=== PATIENT | female | born 1980 | race Caucasian/White ===

== ENCOUNTER 2022-08-30 15:15 | Inpatient (IN) | payer MEDICAID, SELFPAY ==
[~2022-08-30 15:15] MED LIST: Iopamidol-370 76% 500 ML 1 ML ONE
[2022-08-30 15:46] LABS: #Eosinphils 0.2 thou/uL (0.0-0.7); #Lymphocytes 1.8 thou/uL (1.20-3.40); %Basophils 0.5 % (0.0-1.0); %Eosinophils 2.7 % (0.0-10.0); %Lymphocytes 25.9 % (21.0-51.0); %Monocytes 14.1 % (0.0-10.0); %Neutrophils 56.8 % (42.0-75.0); Mean Corpuscular HGB CONC 32.3 g/dL (32.0-36.0); Mean Corpuscular Hemoglobin 33.5 pg (27.0-31.0); Mean Platelet Volume 8.6 fL (7.4-10.4); Platelet Count 114 10x3/uL (130-400); RBC Distribution Width 15.9 % (11.5-14.5); Red Blood Cell (RBC) Count 3.57 mill/uL (4.20-5.40)
[2022-08-30 15:57] LABS: INR-International Normal Ratio 1.6; Prothrombin Time 19.6 sec (12.0-14.7)
[2022-08-30 15:58] LABS: PTT 37.9 sec (22.9-36.1)
[2022-08-30 16:11] LABS: ALT (SGPT) 25 U/L (8-55); AST (SGOT) 55 U/L (5-34); Albumin 2.1 g/dL (3.5-5.0); Alkaline Phosphatase 142 U/L (40-110); Anion Gap 12 mmol/L (10-20); BUN (Urea Nitrogen) 24 mg/dL (7.0-18.7); Bilirubin, Total 4.8 mg/dL (0.2-1.2); Calc. Creatinine Clearance 0 mL/min (70-130); Calcium 7.5 mg/dL (7.8-10.44); Carbon Dioxide 25 mmol/L (22-29); Chloride 97 mmol/L (98-107); Estimated GFR 54; Globulin 4.3 g/dL (2.4-3.5); Glucose 107 mg/dL (70-105); Lipase 58 U/L (8-78); Potassium 3.1 mmol/L (3.5-5.1); Protein, Total 6.4 g/dL (6.0-8.3); Sodium 131 mmol/L (136-145)
[2022-08-30 16:17] LABS: Anisocytosis SLIGHT = 6-15 cells (100X) (0-5/hpf); MDiff Complete? YES; Macrocytosis SLIGHT = 6-15 cells (100X) (0-5/hpf); Platelet Morphology Comment Appears Decreased
[2022-08-30] MEDS ORDERED: Ondansetron PF 4 MG/2 ML Vial ONE ×2 (16:56→19:45)
[2022-08-30] MEDS ORDERED: Fentanyl 100 MCG/2 ML VIAL ONE ×2 (16:56→18:51)
[2022-08-30 18:42] LABS: RBC Count-Automated (BF) 1002 /cu.mm; WBC/Nucleated-Auto (BF) 259 /cu.mm
[2022-08-30 18:54] LABS: Body Fluid Source Ascites Body Fluid; Tube # 3
[2022-08-30 18:55] LABS: BF Color Yellow; Clarity Hazy (Clear)
[2022-08-30 19:04] LABS: BF Segmented Neutrophils 17 %; Cell Count Non Hematic 54 %; Lymphocytes 29 %
[2022-08-30] MEDS ORDERED: cefTRIAXone\\ROCEPHIN 1 GM VIAL ONE (19:45)
[2022-08-30] MEDS ORDERED: Senokot S 8.6-50 MG TAB PO PRN (20:42)
[2022-08-30] MEDS ORDERED: Ondansetron PF 4 MG/2 ML Vial IVP PRN (20:42)
[2022-08-30] MEDS ORDERED: Calcium Carbonate 500 MG ChewTAB PO PRN (20:42)
[2022-08-30] MEDS ORDERED: Ipratropium/Albuterol 3 ML NEB NEB PRN (20:44)
[2022-08-30] MEDS ORDERED: Potassium Chloride 20 MEQ TAB PO SCH (20:45)
[2022-08-30] MEDS ORDERED: Famotidine/PF 20 mg/2ml Vial SLOW IVP SCH (21:00)
[2022-08-30] MEDS ORDERED: Meperidine HCl/PF 25 MG/ML VIAL SLOW IVP SCH (21:45)
[2022-08-30] MEDS: Famotidine 20 MG TAB PO SCH (22:03)
[2022-08-31] MEDS ORDERED: Fentanyl 100 MCG/2 ML VIAL SLOW IVP SCH (03:46)
[2022-08-31] MEDS: Ondansetron ODT 4 MG TAB PO PRN ×2 (04:42→19:55)
[2022-08-31 07:22] LABS: SARS-CoV-2 NAA Rapid Test Not Detected (NotDetected)
[2022-08-31 07:22] LABS: Hemoglobin 11.1 g/dL (12.0-16.0); Mean Corpuscular Hemoglobin 33.4 pg (27.0-31.0); Mean Platelet Volume 8.3 fL (7.4-10.4); Platelet Count 97 10x3/uL (130-400); RBC Distribution Width 15.8 % (11.5-14.5); Red Blood Cell (RBC) Count 3.31 mill/uL (4.20-5.40); White Blood Cell (WBC) Count 7.9 10x3/uL (4.8-10.8)
[2022-08-31 07:38] LABS: ALT (SGPT) 22 U/L (8-55); AST (SGOT) 47 U/L (5-34); Albumin 1.8 g/dL (3.5-5.0); Alkaline Phosphatase 129 U/L (40-110); Anion Gap 8 mmol/L (10-20); BUN (Urea Nitrogen) 21 mg/dL (7.0-18.7); Bilirubin, Total 3.4 mg/dL (0.2-1.2); Calc. Creatinine Clearance 116 mL/min (70-130); Calcium 7.1 mg/dL (7.8-10.44); Carbon Dioxide 25 mmol/L (22-29); Chloride 100 mmol/L (98-107); Estimated GFR 69; Globulin 3.9 g/dL (2.4-3.5); Glucose 95 mg/dL (70-105); Potassium 3.3 mmol/L (3.5-5.1); Protein, Total 5.7 g/dL (6.0-8.3); Sodium 130 mmol/L (136-145)
[2022-08-31] MEDS ORDERED: Spironolactone 100 MG TAB PO SCH (08:00)
[2022-08-31] MEDS: Furosemide 40 MG/4 ML VIAL SLOW IVP SCH (09:00)
[2022-08-31] MEDS: Famotidine 20 MG TAB PO SCH (09:00)
[2022-08-31 09:10] LABS: Band 4 % (5-11); Eosinophils 5 % (0-10); Lymphocytes 20 % (21-51); MDiff Complete? YES; Monocytes 14 % (0-10); Neutrophil 57 % (42-75); Platelet Morphology Comment Appears Decreased; RBC Morphology Normal
[2022-08-31] MEDS: HYDROcodone/Acetaminophen 10/325 mg Tablet PO PRN ×3 (13:44→23:21)
[2022-08-31] MEDS ORDERED: Simethicone Chewable 80 MG TAB PO PRN (15:52)
[2022-08-31] MEDS: Ipratropium/Albuterol 3 ML NEB NEB SCH (18:38)
[2022-08-31] MEDS: Mometasone 100 MCG/Formoterol 5 MCG 120 PUFF INHALER INH SCH (18:42)
[2022-08-31] MEDS ORDERED: Fentanyl 100 MCG/2 ML VIAL SLOW IVP PRN (18:47)
[2022-08-31] MEDS ORDERED: cefTRIAXone\\ROCEPHIN 2 GM in Sodium Chloride 0.9% 100 ML IVPB SCH ×2 (20:00)
[2022-09-01] MEDS: HYDROcodone/Acetaminophen 10/325 mg Tablet PO PRN ×4 (04:19→20:05)
[2022-09-01] MEDS: Ondansetron ODT 4 MG TAB PO PRN (05:55)
[2022-09-01 06:49] LABS: ALT (SGPT) 22 U/L (8-55); AST (SGOT) 44 U/L (5-34); Albumin 1.9 g/dL (3.5-5.0); Alkaline Phosphatase 129 U/L (40-110); Anion Gap 6 mmol/L (10-20); BUN (Urea Nitrogen) 20 mg/dL (7.0-18.7); Bilirubin, Total 3.2 mg/dL (0.2-1.2); Calc. Creatinine Clearance 112 mL/min (70-130); Calcium 7.5 mg/dL (7.8-10.44); Carbon Dioxide 28 mmol/L (22-29); Chloride 96 mmol/L (98-107); Estimated GFR 66; Glucose 96 mg/dL (70-105); Potassium 3.4 mmol/L (3.5-5.1); Protein, Total 5.9 g/dL (6.0-8.3); Sodium 127 mmol/L (136-145)
[2022-09-01] MEDS: Mometasone 100 MCG/Formoterol 5 MCG 120 PUFF INHALER INH SCH ×2 (07:26→18:46)
[2022-09-01] MEDS: Ipratropium/Albuterol 3 ML NEB NEB SCH ×3 (07:27→18:46)
[2022-09-01] MEDS ORDERED: PROPOFOL 200 MG/20 ML VIAL ONE (07:29)
[2022-09-01] MEDS ORDERED: Lidocaine 1% PF 5 ML VIAL ONE (07:29)
[2022-09-01] MEDS ORDERED: Promethazine HCl 25 MG/ML VIAL IM PRN (07:49)
[2022-09-01] MEDS ORDERED: Ondansetron HCl/PF 4 MG/2 ML Vial IVP PRN (07:49)
[2022-09-01] MEDS ORDERED: Potassium Chloride 20 MEQ TAB PO SCH (08:00)
[2022-09-01] MEDS ORDERED: Pantoprazole 40 MG VIAL IVP SCH (09:00)
[2022-09-01] MEDS: Spironolactone 100 MG TAB PO SCH (09:38)
[2022-09-01] MEDS: Pantoprazole 40 MG VIAL IVP SCH ×2 (09:39→20:05)
[2022-09-01] MEDS: Furosemide 40 MG/4 ML VIAL SLOW IVP SCH (09:39)
[2022-09-02] MEDS: HYDROcodone/Acetaminophen 10/325 mg Tablet PO PRN ×6 (00:26→20:13)
[2022-09-02] MEDS ORDERED: diphenhydrAMINE 25 MG CAP PO SCH (02:00)
[2022-09-02 06:32] LABS: Anion Gap 10 mmol/L (10-20); BUN (Urea Nitrogen) 20 mg/dL (7.0-18.7); Calc. Creatinine Clearance 109 mL/min (70-130); Calcium 7.9 mg/dL (7.8-10.44); Carbon Dioxide 23 mmol/L (22-29); Chloride 98 mmol/L (98-107); Estimated GFR 64; Glucose 102 mg/dL (70-105); Potassium 4.1 mmol/L (3.5-5.1); Sodium 127 mmol/L (136-145)
[2022-09-02] MEDS: Mometasone 100 MCG/Formoterol 5 MCG 120 PUFF INHALER INH SCH ×2 (06:52→19:16)
[2022-09-02] MEDS: Ipratropium/Albuterol 3 ML NEB NEB SCH ×3 (06:55→19:15)
[2022-09-02] MEDS: Pantoprazole 40 MG VIAL IVP SCH ×2 (08:39→20:14)
[2022-09-02] MEDS: Furosemide 40 MG/4 ML VIAL SLOW IVP SCH (08:39)
[2022-09-02] MEDS: Spironolactone 100 MG TAB PO SCH (08:39)
[2022-09-02] MEDS: Acetaminophen 325 MG TAB PO PRN ×2 (12:04→17:45)
[2022-09-02] MEDS ORDERED: Potassium Chloride 20 MEQ TAB PO SCH (18:15)
[2022-09-02] MEDS ORDERED: Fentanyl 100 MCG/2 ML VIAL SLOW IVP SCH (22:15)
[2022-09-03] MEDS: HYDROcodone/Acetaminophen 10/325 mg Tablet PO PRN ×5 (00:51→20:01)
[2022-09-03 07:36] LABS: Hemoglobin 10.2 g/dL (12.0-16.0); Mean Corpuscular HGB CONC 32.2 g/dL (32.0-36.0); Mean Corpuscular Hemoglobin 34.1 pg (27.0-31.0); Mean Platelet Volume 8.5 fL (7.4-10.4); Platelet Count 90 10x3/uL (130-400); RBC Distribution Width 15.7 % (11.5-14.5); Red Blood Cell (RBC) Count 2.99 mill/uL (4.20-5.40); White Blood Cell (WBC) Count 7.4 10x3/uL (4.8-10.8)
[2022-09-03 07:53] LABS: ALT (SGPT) 21 U/L (8-55); AST (SGOT) 46 U/L (5-34); Albumin 1.9 g/dL (3.5-5.0); Alkaline Phosphatase 136 U/L (40-110); Anion Gap 10 mmol/L (10-20); BUN (Urea Nitrogen) 20 mg/dL (7.0-18.7); Bilirubin, Total 3.1 mg/dL (0.2-1.2); Calc. Creatinine Clearance 104 mL/min (70-130); Calcium 7.6 mg/dL (7.8-10.44); Carbon Dioxide 21 mmol/L (22-29); Chloride 97 mmol/L (98-107); Estimated GFR 60; Globulin 3.9 g/dL (2.4-3.5); Glucose 96 mg/dL (70-105); Potassium 4.4 mmol/L (3.5-5.1); Protein, Total 5.8 g/dL (6.0-8.3); Sodium 124 mmol/L (136-145)
[2022-09-03] MEDS: Mometasone 100 MCG/Formoterol 5 MCG 120 PUFF INHALER INH SCH ×2 (07:59→19:05)
[2022-09-03] MEDS: Ipratropium/Albuterol 3 ML NEB NEB SCH ×3 (08:02→19:03)
[2022-09-03] MEDS: Pantoprazole 40 MG VIAL IVP SCH ×2 (08:53→20:01)
[2022-09-03] MEDS: Spironolactone 100 MG TAB PO SCH (08:53)
[2022-09-03] MEDS: Furosemide 40 MG/4 ML VIAL SLOW IVP SCH (08:53)
[2022-09-03] MEDS: Acetaminophen 325 MG TAB PO PRN ×2 (10:22→14:56)
[2022-09-03] MEDS ORDERED: Albumin 25% 25 GM/100 ML BOT IVPB SCH (11:15)
[2022-09-03] MEDS ORDERED: Cholestyramine/Aspartame 4 gm Packet PO SCH (11:15)
[2022-09-03] MEDS: Cholestyramine/Aspartame 4 gm Packet PO SCH (21:48)
[2022-09-04] MEDS: HYDROcodone/Acetaminophen 10/325 mg Tablet PO PRN ×6 (00:27→23:14)
[2022-09-04] MEDS: Acetaminophen 325 MG TAB PO PRN ×3 (09:21→19:00)
[2022-09-04] MEDS: Pantoprazole 40 MG VIAL IVP SCH ×2 (09:22→20:43)
[2022-09-04] MEDS: Spironolactone 100 MG TAB PO SCH (09:22)
[2022-09-04] MEDS: Furosemide 40 MG/4 ML VIAL SLOW IVP SCH (09:22)
[2022-09-04] MEDS: Ipratropium/Albuterol 3 ML NEB NEB SCH ×3 (10:32→19:05)
[2022-09-04] MEDS: Mometasone 100 MCG/Formoterol 5 MCG 120 PUFF INHALER INH SCH ×2 (10:33→19:07)
[2022-09-04] MEDS: Cholestyramine/Aspartame 4 gm Packet PO SCH (11:18)
[2022-09-04] MEDS: Fentanyl 100 MCG/2 ML VIAL SLOW IVP PRN ×2 (12:19→16:53)
[2022-09-04] MEDS ORDERED: Furosemide 40 MG/4 ML VIAL SLOW IVP SCH (14:00)
[2022-09-04] MEDS ORDERED: Fentanyl 100 MCG/2 ML VIAL SLOW IVP PRN ×2 (16:35→21:31)
[2022-09-05] MEDS: Albumin 25% 25 GM/100 ML BOT IVPB SCH ×4 (00:40→17:56)
[2022-09-05] MEDS: HYDROcodone/Acetaminophen 10/325 mg Tablet PO PRN ×4 (02:46→14:00)
[2022-09-05] MEDS ORDERED: Fentanyl 100 MCG/2 ML VIAL SLOW IVP PRN ×2 (03:46→15:13)
[2022-09-05 06:25] LABS: Hemoglobin 9.4 g/dL (12.0-16.0); Mean Corpuscular HGB CONC 32.2 g/dL (32.0-36.0); Mean Corpuscular Hemoglobin 33.3 pg (27.0-31.0); Mean Platelet Volume 8.3 fL (7.4-10.4); Platelet Count 85 10x3/uL (130-400); RBC Distribution Width 15.9 % (11.5-14.5); Red Blood Cell (RBC) Count 2.81 mill/uL (4.20-5.40); White Blood Cell (WBC) Count 7.7 10x3/uL (4.8-10.8)
[2022-09-05 06:46] LABS: ALT (SGPT) 21 U/L (8-55); AST (SGOT) 44 U/L (5-34); Albumin 2.3 g/dL (3.5-5.0); Alkaline Phosphatase 108 U/L (40-110); Anion Gap 11 mmol/L (10-20); BUN (Urea Nitrogen) 22 mg/dL (7.0-18.7); Bilirubin, Total 3.6 mg/dL (0.2-1.2); Calc. Creatinine Clearance 144 mL/min (70-130); Calcium 8.2 mg/dL (7.8-10.44); Carbon Dioxide 23 mmol/L (22-29); Chloride 98 mmol/L (98-107); Estimated GFR 83; Globulin 3.6 g/dL (2.4-3.5); Glucose 96 mg/dL (70-105); Potassium 5.2 mmol/L (3.5-5.1); Protein, Total 5.9 g/dL (6.0-8.3); Sodium 127 mmol/L (136-145)
[2022-09-05] MEDS: Ipratropium/Albuterol 3 ML NEB NEB SCH ×3 (06:50→19:40)
[2022-09-05] MEDS: Mometasone 100 MCG/Formoterol 5 MCG 120 PUFF INHALER INH SCH ×2 (07:50→19:41)
[2022-09-05] MEDS: Spironolactone 100 MG TAB PO SCH (08:34)
[2022-09-05] MEDS: Furosemide 40 MG/4 ML VIAL SLOW IVP SCH (08:34)
[2022-09-05] MEDS: Pantoprazole 40 MG VIAL IVP SCH (08:34)
[2022-09-05] MEDS ORDERED: MD-Gastroview 120 ML BOT ONE (09:42)
[2022-09-05] MEDS ORDERED: HYDROmorphone 0.5 MG/0.5 ML SYRINGE SLOW IVP SCH (10:15)
[2022-09-05 12:55] LABS: Fluid, pH - Pleural Fld Greater than 7.50 (7.60 - 7.66)
[2022-09-05 13:07] LABS: RBC Count-Automated (BF) 1182 /cu.mm; WBC/Nucleated-Auto (BF) 236 /cu.mm
[2022-09-05 13:32] LABS: Pleural Fluid, Amylase Less than 30 U/L (Not Available); Pleural Fluid, Glucose 105 mg/dL; Pleural Fluid, LDH 55 U/L (Not Available); Pleural Fluid, Protein Less than 1.0 g/dL
[2022-09-05 14:50] LABS: Body Fluid Source Thoracentesis Fluid; Tube # EDTA
[2022-09-05 14:51] LABS: BF Color Yellow; Clarity Clear (Clear)
[2022-09-05 14:52] LABS: BF Segmented Neutrophils 16 %; Cell Count Non Hematic 74 %; Lymphocytes 10 %
[2022-09-05] MEDS ORDERED: diphenhydrAMINE 50 MG/ML VIAL IVP PRN (17:05)
[2022-09-05] MEDS ORDERED: Ondansetron PF 4 MG/2 ML Vial IVP PRN (17:05)
[2022-09-05] MEDS ORDERED: Naloxone HCl 0.4 mg/ml Vial IV PRN (17:05)
[2022-09-05] MEDS ORDERED: Zolpidem Tartrate 5 MG TAB PO PRN (17:05)
[2022-09-05] MEDS ORDERED: diphenhydrAMINE 50 MG/ML VIAL IM PRN (17:05)
[2022-09-05] MEDS ORDERED: Promethazine HCl 25 MG/ML VIAL IM PRN (17:05)
[2022-09-05] MEDS ORDERED: diphenhydrAMINE 25 MG CAP PO PRN (17:05)
[2022-09-05] MEDS ORDERED: Communication Order-Pharmacy FS SCH (17:15)
[2022-09-05] MEDS: FENTANYL 500 MCG/10 ML VIAL 2,000 MCG in Sodium Chloride 0.9% 60 ML IV PRN (17:52)
[2022-09-06] MEDS: Ipratropium/Albuterol 3 ML NEB NEB SCH ×3 (06:37→18:35)
[2022-09-06] MEDS: Mometasone 100 MCG/Formoterol 5 MCG 120 PUFF INHALER INH SCH ×2 (06:38→18:37)
[2022-09-06] MEDS ORDERED: Bisacodyl 10 MG SUPP PR PRN (06:52)
[2022-09-06] MEDS ORDERED: Senokot S 8.6-50 MG TAB PO SCH (07:00)
[2022-09-06 07:06] LABS: Anion Gap 11 mmol/L (10-20); BUN (Urea Nitrogen) 17 mg/dL (7.0-18.7); Calc. Creatinine Clearance 180 mL/min (70-130); Calcium 8.6 mg/dL (7.8-10.44); Carbon Dioxide 24 mmol/L (22-29); Chloride 101 mmol/L (98-107); Estimated GFR 109; Glucose 94 mg/dL (70-105); Potassium 4.9 mmol/L (3.5-5.1); Sodium 131 mmol/L (136-145)
[2022-09-06] MEDS: Spironolactone 100 MG TAB PO SCH (08:58)
[2022-09-06] MEDS: Pantoprazole 40 MG VIAL IVP SCH ×2 (08:59→20:15)
[2022-09-06] MEDS: Furosemide 40 MG/4 ML VIAL SLOW IVP SCH ×2 (08:59→15:47)
[2022-09-06] MEDS: Albumin 25% 25 GM/100 ML BOT IVPB SCH ×2 (15:48→20:15)
[2022-09-07] MEDS: Furosemide 40 MG/4 ML VIAL SLOW IVP SCH ×2 (05:06→15:15)
[2022-09-07] MEDS: Ipratropium/Albuterol 3 ML NEB NEB SCH ×3 (06:12→18:27)
[2022-09-07 06:14] LABS: Bilirubin Negative (Negative); Blood, Urine 1+ (Negative); Clarity Clear (Clear); Glucose, Urine (Dipstick) Normal (Negative); Ketone, Urine Negative (Negative); Leukocyte 500 Leu/uL (Negative); Nitrite Negative (Negative); Protein, Urine (Dipstick) Negative (Neg-Trace); Specific Gravity, Urine 1.018 (1.002-1.036); Urobilinogen Normal mg/dL (Less than 2); WBC/HPF Greater than 50 HPF (0-3); pH, Urine 6.5 (5.0-9.0)
[2022-09-07] MEDS: Mometasone 100 MCG/Formoterol 5 MCG 120 PUFF INHALER INH SCH ×2 (06:14→18:30)
[2022-09-07 06:15] LABS: Bacteria/HPF 1+ HPF (None Seen)
[2022-09-07 07:14] LABS: Iron 47 ug/dL (50-170); Iron Binding Capacity, Total 144 mcg/dL (265-497)
[2022-09-07] MEDS: Spironolactone 100 MG TAB PO SCH (08:37)
[2022-09-07] MEDS: Albumin 25% 25 GM/100 ML BOT IVPB SCH ×2 (08:37→15:16)
[2022-09-07] MEDS: Pantoprazole 40 MG VIAL IVP SCH ×2 (08:38→20:18)
[2022-09-07 09:57] LABS: Hemoglobin 8.8 g/dL (12.0-16.0); Mean Corpuscular Hemoglobin 33.3 pg (27.0-31.0); Mean Platelet Volume 7.9 fL (7.4-10.4); Platelet Count 80 10x3/uL (130-400); RBC Distribution Width 16.4 % (11.5-14.5); Red Blood Cell (RBC) Count 2.65 mill/uL (4.20-5.40); White Blood Cell (WBC) Count 5.7 10x3/uL (4.8-10.8)
[2022-09-07 09:58] LABS: ALT (SGPT) 16 U/L (8-55); AST (SGOT) 35 U/L (5-34); Alkaline Phosphatase 85 U/L (40-110); Anion Gap 12 mmol/L (10-20); BUN (Urea Nitrogen) 14 mg/dL (7.0-18.7); Bilirubin, Total 3.2 mg/dL (0.2-1.2); Calc. Creatinine Clearance 168 mL/min (70-130); Calcium 8.6 mg/dL (7.8-10.44); Carbon Dioxide 23 mmol/L (22-29); Chloride 100 mmol/L (98-107); Estimated GFR 100; Globulin 2.8 g/dL (2.4-3.5); Glucose 126 mg/dL (70-105); Potassium 4.2 mmol/L (3.5-5.1); Protein, Total 5.8 g/dL (6.0-8.3); Sodium 131 mmol/L (136-145)
[2022-09-07 12:34] LABS: Anisocytosis SLIGHT = 6-15 cells (100X) (0-5/hpf); Band 2 % (5-11); Eosinophils 1 % (0-10); Lymphocytes 21 % (21-51); MDiff Complete? YES; Macrocytosis SLIGHT = 6-15 cells (100X) (0-5/hpf); Monocytes 6 % (0-10); Neutrophil 70 % (42-75); Platelet Morphology Comment Appears Decreased; Polychromasia SLIGHT = 2-3 cells (100X) (0-2/hpf)
[2022-09-07] MEDS: FENTANYL 500 MCG/10 ML VIAL 2,000 MCG in Sodium Chloride 0.9% 60 ML IV PRN (12:41)
[2022-09-07 13:21] LABS: ANA Symphony (Qualitative) Negative (Negative); ANA Symphony (Quantitative) 0.5 Ratio (< 0.7 Negative); EliA Vaculitis New Method **** NEW METHOD ****; Mitochondrial Ab 1.4 U/mL (<4 Negative); dsDNA IgG Antibody 1.2 IU/mL (<10 Negative)
[2022-09-07] MEDS ORDERED: Acetaminophen 325 MG TAB PO PRN (15:13)
[2022-09-08] MEDS: Furosemide 40 MG/4 ML VIAL SLOW IVP SCH ×2 (05:28→13:11)
[2022-09-08 07:04] LABS: Anion Gap 16 mmol/L (10-20); BUN (Urea Nitrogen) 11 mg/dL (7.0-18.7); Calc. Creatinine Clearance 177 mL/min (70-130); Calcium 8.6 mg/dL (7.8-10.44); Carbon Dioxide 19 mmol/L (22-29); Chloride 100 mmol/L (98-107); Estimated GFR 107; Glucose 93 mg/dL (70-105); Potassium 4.9 mmol/L (3.5-5.1); Sodium 130 mmol/L (136-145)
[2022-09-08 07:21] LABS: HIV (1/2) Antibody/Antigen Non-Reactive (NonReactive); HIV 1/2 INDEX 0.26 S/CO (<1.00)
[2022-09-08] MEDS: Ipratropium/Albuterol 3 ML NEB NEB SCH ×3 (07:31→19:03)
[2022-09-08] MEDS: Mometasone 100 MCG/Formoterol 5 MCG 120 PUFF INHALER INH SCH ×2 (07:33→19:04)
[2022-09-08 07:41] LABS: Eosinophils 1 % (0-10); Lymphocytes 15 % (21-51); MDiff Complete? YES; Macrocytosis SLIGHT = 6-15 cells (100X) (0-5/hpf); Mean Corpuscular Hemoglobin 33.8 pg (27.0-31.0); Mean Platelet Volume 10.7 fL (7.4-10.4); Monocytes 13 % (0-10); Neutrophil 69 % (42-75); Ovalocytes SLIGHT = 2-5 cells (100X) (0-1/hpf); Platelet Count 29 10x3/uL (130-400); Platelet Morphology Comment Appears Decreased; Polychromasia SLIGHT = 2-3 cells (100X) (0-2/hpf); RBC Distribution Width 17.4 % (11.5-14.5); Reactive Lymphocytes 2 % (0-10); Red Blood Cell (RBC) Count 2.67 mill/uL (4.20-5.40)
[2022-09-08] MEDS: Spironolactone 100 MG TAB PO SCH (08:38)
[2022-09-08] MEDS: Pantoprazole 40 MG VIAL IVP SCH ×2 (08:43→20:01)
[2022-09-08] MEDS ORDERED: oxyCODONE 5 MG TAB PO PRN (10:10)
[2022-09-08] MEDS ORDERED: FENTANYL 500 MCG/10 ML VIAL 2,000 MCG in Sodium Chloride 0.9% 60 ML IV PRN (10:11)
[2022-09-08] MEDS: oxyCODONE 5 MG TAB PO SCH ×3 (13:11→20:00)
[2022-09-08] MEDS: cefTRIAXone\\ROCEPHIN 2 GM in Sodium Chloride 0.9% 100 ML IVPB SCH (13:12)
[2022-09-08 13:16] LABS: Fungus Stain Final report (.)
[2022-09-08] MEDS: Fentanyl 100 MCG/2 ML VIAL SLOW IVP PRN ×4 (13:18→23:36)
[2022-09-09] MEDS: oxyCODONE 5 MG TAB PO SCH ×6 (01:05→20:24)
[2022-09-09] MEDS: Fentanyl 100 MCG/2 ML VIAL SLOW IVP PRN ×8 (03:24→22:34)
[2022-09-09] MEDS: Furosemide 40 MG/4 ML VIAL SLOW IVP SCH ×2 (05:36→13:28)
[2022-09-09] MEDS: Mometasone 100 MCG/Formoterol 5 MCG 120 PUFF INHALER INH SCH ×2 (07:03→19:05)
[2022-09-09] MEDS: Ipratropium/Albuterol 3 ML NEB NEB SCH ×4 (07:04→19:05)
[2022-09-09] MEDS: Spironolactone 100 MG TAB PO SCH (08:22)
[2022-09-09] MEDS: Pantoprazole 40 MG VIAL IVP SCH (08:23)
[2022-09-09 08:45] LABS: #Eosinphils 0.1 thou/uL (0.0-0.7); #Monocytes 0.8 thou/uL (0.11-0.59); %Basophils 0.3 % (0.0-1.0); %Eosinophils 1.7 % (0.0-10.0); %Lymphocytes 16.2 % (21.0-51.0); %Monocytes 14.2 % (0.0-10.0); %Neutrophils 67.6 % (42.0-75.0); Hemoglobin 9.4 g/dL (12.0-16.0); Mean Corpuscular HGB CONC 32.1 g/dL (32.0-36.0); Mean Corpuscular Hemoglobin 33.6 pg (27.0-31.0); Platelet Count 72 10x3/uL (130-400); RBC Distribution Width 17.4 % (11.5-14.5); Red Blood Cell (RBC) Count 2.78 mill/uL (4.20-5.40); White Blood Cell (WBC) Count 5.9 10x3/uL (4.8-10.8)
[2022-09-09 08:49] LABS: INR-International Normal Ratio 1.8; Prothrombin Time 21.3 sec (12.0-14.7)
[2022-09-09 09:06] LABS: Anion Gap 11 mmol/L (10-20); BUN (Urea Nitrogen) 10 mg/dL (7.0-18.7); Calc. Creatinine Clearance 180 mL/min (70-130); Calcium 8.4 mg/dL (7.8-10.44); Carbon Dioxide 27 mmol/L (22-29); Chloride 96 mmol/L (98-107); Estimated GFR 111; Glucose 100 mg/dL (70-105); Potassium 3.9 mmol/L (3.5-5.1); Sodium 130 mmol/L (136-145)
[2022-09-09 09:41] LABS: ALT (SGPT) 18 U/L (8-55); AST (SGOT) 34 U/L (5-34); Albumin 3.3 g/dL (3.5-5.0); Alkaline Phosphatase 90 U/L (40-110); Bilirubin, Direct 1.5 mg/dL (0.1-0.3); Bilirubin, Total 3.4 mg/dL (0.2-1.2); Protein, Total 6.1 g/dL (6.0-8.3)
[2022-09-09] MEDS: cefTRIAXone\\ROCEPHIN 2 GM in Sodium Chloride 0.9% 100 ML IVPB SCH (13:28)
[2022-09-09] MEDS ORDERED: Potassium Chloride 20 MEQ TAB PO SCH (14:45)
[2022-09-09] MEDS ORDERED: Magnesium Oxide 400 MG TAB PO SCH (14:45)
[2022-09-10] MEDS: Fentanyl 100 MCG/2 ML VIAL SLOW IVP PRN ×9 (00:31→22:47)
[2022-09-10] MEDS: oxyCODONE 5 MG TAB PO SCH ×6 (00:33→20:42)
[2022-09-10] MEDS: Furosemide 40 MG/4 ML VIAL SLOW IVP SCH ×2 (06:33→14:00)
[2022-09-10] MEDS: Mometasone 100 MCG/Formoterol 5 MCG 120 PUFF INHALER INH SCH ×2 (07:25→18:40)
[2022-09-10] MEDS: Ipratropium/Albuterol 3 ML NEB NEB SCH ×3 (07:25→18:40)
[2022-09-10 07:45] LABS: Anion Gap 13 mmol/L (10-20); BUN (Urea Nitrogen) 9 mg/dL (7.0-18.7); Calc. Creatinine Clearance 179 mL/min (70-130); Calcium 8.6 mg/dL (7.8-10.44); Carbon Dioxide 23 mmol/L (22-29); Chloride 97 mmol/L (98-107); Estimated GFR 112; Glucose 87 mg/dL (70-105); Potassium 4.2 mmol/L (3.5-5.1); Sodium 129 mmol/L (136-145)
[2022-09-10] MEDS: Spironolactone 100 MG TAB PO SCH (08:12)
[2022-09-10] MEDS: Magnesium Oxide 400 MG TAB PO SCH (08:13)
[2022-09-10 08:18] LABS: Hemoglobin 10.1 g/dL (12.0-16.0); Mean Corpuscular HGB CONC 31.4 g/dL (32.0-36.0); Mean Corpuscular Hemoglobin 33.2 pg (27.0-31.0); RBC Distribution Width 17.7 % (11.5-14.5); Red Blood Cell (RBC) Count 3.04 mill/uL (4.20-5.40)
[2022-09-10 10:51] LABS: Anisocytosis SLIGHT = 6-15 cells (100X) (0-5/hpf); Eosinophils 4 % (0-10); Lymphocytes 14 % (21-51); MDiff Complete? YES; Mean Platelet Volume 7.8 fL (7.4-10.4); Monocytes 16 % (0-10); Neutrophil 66 % (42-75); Platelet Count 90 10x3/uL (130-400); Platelet Morphology Comment Appears Decreased; Polychromasia SLIGHT = 2-3 cells (100X) (0-2/hpf); White Blood Cell (WBC) Count 7.2 10x3/uL (4.8-10.8)
[2022-09-10] MEDS ORDERED: Acetaminophen 500 MG TAB PO PRN (11:05)
[2022-09-10 13:13] LABS: Smooth Muscle Total ABS 5 Units (0-19)
[2022-09-10] MEDS: cefTRIAXone\\ROCEPHIN 2 GM in Sodium Chloride 0.9% 100 ML IVPB SCH (13:57)
[2022-09-10] MEDS: Gabapentin 100 MG CAP PO SCH ×2 (15:14→20:39)
[2022-09-10 16:36] LABS: HBV as IU/mL HBV DNA not detected IU/mL (.)
[2022-09-11] MEDS: oxyCODONE 5 MG TAB PO SCH ×6 (01:15→20:10)
[2022-09-11] MEDS: Fentanyl 100 MCG/2 ML VIAL SLOW IVP PRN ×4 (01:18→11:15)
[2022-09-11] MEDS: Furosemide 40 MG/4 ML VIAL SLOW IVP SCH ×2 (06:33→13:49)
[2022-09-11 06:46] LABS: Anion Gap 13 mmol/L (10-20); BUN (Urea Nitrogen) 10 mg/dL (7.0-18.7); Calc. Creatinine Clearance 178 mL/min (70-130); Calcium 8.4 mg/dL (7.8-10.44); Carbon Dioxide 23 mmol/L (22-29); Chloride 98 mmol/L (98-107); Estimated GFR 113; Glucose 94 mg/dL (70-105); Potassium 4.3 mmol/L (3.5-5.1); Sodium 130 mmol/L (136-145)
[2022-09-11 06:48] LABS: Hemoglobin 9.1 g/dL (12.0-16.0); Hypochromia SLIGHT = 6-15 cells (100X) (0-5/hpf); Lymphocytes 13 % (21-51); MDiff Complete? YES; Macrocytosis SLIGHT = 6-15 cells (100X) (0-5/hpf); Mean Corpuscular HGB CONC 32.5 g/dL (32.0-36.0); Mean Platelet Volume 7.9 fL (7.4-10.4); Monocytes 12 % (0-10); Neutrophil 75 % (42-75); Platelet Count 82 10x3/uL (130-400); Platelet Morphology Comment Appears Decreased; RBC Distribution Width 17.4 % (11.5-14.5); Red Blood Cell (RBC) Count 2.68 mill/uL (4.20-5.40)
[2022-09-11] MEDS: Mometasone 100 MCG/Formoterol 5 MCG 120 PUFF INHALER INH SCH ×2 (07:26→19:20)
[2022-09-11] MEDS: Ipratropium/Albuterol 3 ML NEB NEB SCH ×3 (07:28→19:20)
[2022-09-11] MEDS: Spironolactone 100 MG TAB PO SCH (08:24)
[2022-09-11] MEDS: Gabapentin 100 MG CAP PO SCH ×3 (08:25→20:11)
[2022-09-11] MEDS: Magnesium Oxide 400 MG TAB PO SCH (08:29)
[2022-09-11 08:37] LABS: Hep C PCR-Quant HCV Not Detected IU/mL (.)
[2022-09-11] MEDS: Ondansetron ODT 4 MG TAB PO PRN (09:59)
[2022-09-11] MEDS ORDERED: Hydrocortisone 1% Cream 30 GM TUBE TOP PRN (12:45)
[2022-09-11] MEDS: cefTRIAXone\\ROCEPHIN 2 GM in Sodium Chloride 0.9% 100 ML IVPB SCH (13:49)
[2022-09-11] MEDS: FENTANYL 50 MCG/ML 1 ML VIAL SLOW IVP PRN ×4 (15:11→22:40)
[2022-09-11] MEDS: Nystatin Powder 15 GM BOT TOP SCH (20:27)
[2022-09-12] MEDS: oxyCODONE 5 MG TAB PO SCH ×7 (00:35→23:58)
[2022-09-12] MEDS: FENTANYL 50 MCG/ML 1 ML VIAL SLOW IVP PRN ×11 (00:36→23:59)
[2022-09-12 06:24] LABS: #Eosinphils 0.2 thou/uL (0.0-0.7); #Lymphocytes 1.3 thou/uL (1.20-3.40); #Neutrophils 4.3 thou/uL (1.40-6.50); %Basophils 0.6 % (0.0-1.0); %Eosinophils 2.4 % (0.0-10.0); %Lymphocytes 19.5 % (21.0-51.0); %Neutrophils 63.4 % (42.0-75.0); Hemoglobin 8.9 g/dL (12.0-16.0); Mean Corpuscular HGB CONC 32.3 g/dL (32.0-36.0); Mean Corpuscular Hemoglobin 33.5 pg (27.0-31.0); Mean Platelet Volume 7.9 fL (7.4-10.4); Platelet Count 86 10x3/uL (130-400); RBC Distribution Width 17.4 % (11.5-14.5); Red Blood Cell (RBC) Count 2.65 mill/uL (4.20-5.40); White Blood Cell (WBC) Count 6.8 10x3/uL (4.8-10.8)
[2022-09-12 06:37] LABS: ALT (SGPT) 17 U/L (8-55); AST (SGOT) 31 U/L (5-34); Albumin 3.1 g/dL (3.5-5.0); Alkaline Phosphatase 85 U/L (40-110); Anion Gap 11 mmol/L (10-20); BUN (Urea Nitrogen) 9 mg/dL (7.0-18.7); Bilirubin, Total 2.9 mg/dL (0.2-1.2); Calc. Creatinine Clearance 176 mL/min (70-130); Carbon Dioxide 26 mmol/L (22-29); Chloride 97 mmol/L (98-107); Estimated GFR 112; Globulin 2.9 g/dL (2.4-3.5); Glucose 92 mg/dL (70-105); Magnesium 1.4 mg/dL (1.6-2.6); Phosphorus 2.7 mg/dL (2.3-4.7); Potassium 3.9 mmol/L (3.5-5.1); Sodium 130 mmol/L (136-145)
[2022-09-12] MEDS: Furosemide 40 MG/4 ML VIAL SLOW IVP SCH ×2 (06:39→13:01)
[2022-09-12] MEDS: Ipratropium/Albuterol 3 ML NEB NEB SCH ×3 (07:02→19:10)
[2022-09-12] MEDS: Mometasone 100 MCG/Formoterol 5 MCG 120 PUFF INHALER INH SCH ×2 (07:02→19:10)
[2022-09-12] MEDS: Magnesium Oxide 400 MG TAB PO SCH (08:29)
[2022-09-12] MEDS: Gabapentin 100 MG CAP PO SCH ×3 (08:29→19:51)
[2022-09-12] MEDS: Spironolactone 100 MG TAB PO SCH (08:29)
[2022-09-12] MEDS: Nystatin Powder 15 GM BOT TOP SCH ×2 (08:30→19:51)
[2022-09-12] MEDS: Cephalexin 250 MG CAP PO SCH ×3 (09:21→19:51)
[2022-09-12 13:52] VITALS: BMI 34.9
[2022-09-12] MEDS ORDERED: Nicotine 14 MG PATCH TD PRN (14:55)
[2022-09-12] MEDS ORDERED: Melatonin 3 MG TAB PO PRN (22:45)
[2022-09-13] MEDS: FENTANYL 50 MCG/ML 1 ML VIAL SLOW IVP PRN ×4 (02:20→10:20)
[2022-09-13] MEDS: oxyCODONE 5 MG TAB PO SCH ×5 (04:52→20:56)
[2022-09-13] MEDS: Furosemide 40 MG/4 ML VIAL SLOW IVP SCH (06:09)
[2022-09-13] MEDS: Ipratropium/Albuterol 3 ML NEB NEB SCH ×3 (07:14→19:11)
[2022-09-13] MEDS: Mometasone 100 MCG/Formoterol 5 MCG 120 PUFF INHALER INH SCH ×2 (07:18→19:12)
[2022-09-13] MEDS: Spironolactone 100 MG TAB PO SCH (07:53)
[2022-09-13] MEDS: Magnesium Oxide 400 MG TAB PO SCH ×2 (07:53→20:55)
[2022-09-13] MEDS: Cephalexin 250 MG CAP PO SCH ×3 (07:53→20:56)
[2022-09-13] MEDS: Gabapentin 100 MG CAP PO SCH ×3 (07:54→20:56)
[2022-09-13 09:57] LABS: #Eosinphils 0.1 thou/uL (0.0-0.7); #Lymphocytes 1.6 thou/uL (1.20-3.40); #Neutrophils 4.1 thou/uL (1.40-6.50); %Basophils 0.4 % (0.0-1.0); %Eosinophils 1.9 % (0.0-10.0); %Monocytes 14.2 % (0.0-10.0); %Neutrophils 60.4 % (42.0-75.0); Hemoglobin 9.7 g/dL (12.0-16.0); Mean Corpuscular HGB CONC 32.3 g/dL (32.0-36.0); Mean Corpuscular Hemoglobin 33.7 pg (27.0-31.0); Platelet Count 95 10x3/uL (130-400); RBC Distribution Width 17.4 % (11.5-14.5); Red Blood Cell (RBC) Count 2.89 mill/uL (4.20-5.40); White Blood Cell (WBC) Count 6.9 10x3/uL (4.8-10.8)
[2022-09-13 10:06] LABS: Anion Gap 13 mmol/L (10-20); BUN (Urea Nitrogen) 9 mg/dL (7.0-18.7); Calc. Creatinine Clearance 151 mL/min (70-130); Calcium 8.5 mg/dL (7.8-10.44); Carbon Dioxide 23 mmol/L (22-29); Chloride 98 mmol/L (98-107); Estimated GFR 102; Glucose 112 mg/dL (70-105); Magnesium 1.5 mg/dL (1.6-2.6); Sodium 130 mmol/L (136-145)
[2022-09-13] MEDS: Nystatin Powder 15 GM BOT TOP SCH (10:25)
[2022-09-13] MEDS ORDERED: Calcium Carbonate 500 MG ChewTAB PO PRN (13:01)
[2022-09-13] MEDS ORDERED: Ondansetron ODT 4 MG TAB PO PRN (13:02)
[2022-09-13] MEDS ORDERED: Simethicone Chewable 80 MG TAB PO PRN (13:03)
[2022-09-13] MEDS ORDERED: diphenhydrAMINE 25 MG CAP PO PRN ×2 (13:04→17:20)
[2022-09-13] MEDS ORDERED: Ondansetron PF 4 MG/2 ML Vial IVP PRN (13:04)
[2022-09-13] MEDS ORDERED: diphenhydrAMINE 50 MG/ML VIAL IVP PRN (13:04)
[2022-09-13] MEDS ORDERED: Promethazine HCl 25 MG/ML VIAL IM PRN (13:04)
[2022-09-13] MEDS ORDERED: Zolpidem Tartrate 5 MG TAB PO PRN (13:05)
[2022-09-13] MEDS: oxyCODONE 5 MG TAB PO PRN ×3 (13:05→23:53)
[2022-09-13] MEDS ORDERED: diphenhydrAMINE 50 MG/ML VIAL IM PRN (13:05)
[2022-09-13] MEDS ORDERED: Naloxone HCl 0.4 mg/ml Vial IV PRN (13:05)
[2022-09-13] MEDS ORDERED: Bisacodyl 10 MG SUPP PR PRN (13:06)
[2022-09-13] MEDS ORDERED: Acetaminophen 500 MG TAB PO PRN (13:07)
[2022-09-13] MEDS ORDERED: Hydrocortisone 1% Cream 30 GM TUBE TOP PRN (13:08)
[2022-09-13] MEDS ORDERED: Nicotine 14 MG PATCH TD PRN (13:09)
[2022-09-13] MEDS ORDERED: Melatonin 3 MG TAB PO PRN (13:09)
[2022-09-13] MEDS ORDERED: Senokot S 8.6-50 MG TAB PO SCH (13:15)
[2022-09-14] MEDS: Nystatin Powder 15 GM BOT TOP SCH ×2 (00:04→09:52)
[2022-09-14] MEDS: oxyCODONE 5 MG TAB PO SCH ×4 (02:03→13:41)
[2022-09-14] MEDS: oxyCODONE 5 MG TAB PO PRN ×2 (05:48→11:49)
[2022-09-14] MEDS ORDERED: Furosemide 80 MG TAB PO SCH ×2 (07:30)
[2022-09-14] MEDS ORDERED: Spironolactone 100 MG TAB PO SCH (08:00)
[2022-09-14] MEDS: Gabapentin 100 MG CAP PO SCH (08:09)
[2022-09-14] MEDS: Cephalexin 250 MG CAP PO SCH (08:09)
[2022-09-14] MEDS: Magnesium Oxide 400 MG TAB PO SCH (08:09)
[2022-09-14] MEDS ORDERED: Magnesium Oxide 400 MG TAB PO SCH (09:00)
[2022-09-14] MEDS: Ipratropium/Albuterol 3 ML NEB NEB SCH (11:27)
[2022-09-14] MEDS: Mometasone 100 MCG/Formoterol 5 MCG 120 PUFF INHALER INH SCH (11:27)
[2022-09-14 14:26] VITALS: BP 108/62; TEMP 98.3
== END 2022-09-14 14:26 | disposition home or self-care (01) | DRG 433 ==
LOC: ERS 15:15 → SURG B 19:31 → T4-B 09-05 16:41 → UNDODISIN 09-13 12:22
PROVIDERS: ADMIT Student in an Organized Health Care Education/Training Program; ATTEND Internal Medicine
PROC: 0DJ08ZZ Inspection of Upper Intestinal Tract, Via Natural or Artificial Opening Endoscopic (ICD-10-PCS; principal; 2022-09-01)
PROC: 0W993ZZ Drainage of Right Pleural Cavity, Percutaneous Approach (ICD-10-PCS; 2022-09-05)
DX: K70.31 Alcoholic cirrhosis of liver with ascites (principal); E44.0 Moderate protein-calorie malnutrition; E87.1 Hypo-osmolality and hyponatremia; N17.9 Acute kidney failure, unspecified; J94.8 Other specified pleural conditions; Z20.822 Contact with and (suspected) exposure to COVID-19; J44.9 Chronic obstructive pulmonary disease, unspecified; K42.9 Umbilical hernia without obstruction or gangrene; E87.6 Hypokalemia; K76.82 Hepatic encephalopathy; B18.2 Chronic viral hepatitis C; F17.210 Nicotine dependence, cigarettes, uncomplicated; K59.00 Constipation, unspecified; K25.9 Gastric ulcer, unspecified as acute or chronic, without hemorrhage or perforation; E87.70 Fluid overload, unspecified; E87.5 Hyperkalemia; Z90.49 Acquired absence of other specified parts of digestive tract; Z88.5 Allergy status to narcotic agent; Z88.0 Allergy status to penicillin; Z68.33 Body mass index [BMI] 33.0-33.9, adult
CPT/HCPCS: 36415; 36416; 71045; 74018; 74176; 74177; 74250; 76705; 80048; 80053; 80076; 81001; 82105; 82150; 82390; 82525; 82550; 82728; 82945; 83516; 83540; 83550; 83605; 83615; 83690; 83735; 83880; 84100; 84157; 84484; 85025; 85027; 85060; 85610; 85730; 86015; 86038; 86225; 87040; 87070; 87116; 87205; 87206; 87389; 87517; 87522; 87811; 88112; 88305; 88341; 88342; 89051; 93970; 94640; 94664; 94760; C9113; J0696; J1170; J1200; J1940; J1956; J2175; J2405; J2704; J3010; J3490; J7611; J7620; P9047; Q0162; Q9963; Q9967; U0002

== ENCOUNTER 2022-09-26 13:44 | Inpatient (IN) | payer MEDICAID, OTHER ==
[~2022-09-26 13:44] MED LIST changes: -Iopamidol-370 76% 500 ML 1 ML ONE; +Iopamidol-370 76% 500 ML MDV (1 ML CHARGE) ONE
[2022-09-26] MEDS ORDERED: Naloxone HCl 2 mg/2 ml Syringe ONE (13:50)
[2022-09-26] MEDS ORDERED: LORazepam 2 MG/ML SYR.(CARPUJECT) ONE (14:11)
[2022-09-26] MEDS ORDERED: Rocuronium Bromide 10 MG/ML (10ML VIAL) ONE ×2 (14:14→20:23)
[2022-09-26 14:22] LABS: #Lymphocytes 0.7 thou/uL (1.20-3.40); #Monocytes 0.9 thou/uL (0.11-0.59); #Neutrophils 6.1 thou/uL (1.40-6.50); %Eosinophils 0.2 % (0.0-10.0); %Lymphocytes 8.7 % (21.0-51.0); %Monocytes 11.6 % (0.0-10.0); %Neutrophils 79.5 % (42.0-75.0); Hemoglobin 11.4 g/dL (12.0-16.0); Mean Corpuscular HGB CONC 32.1 g/dL (32.0-36.0); Mean Corpuscular Hemoglobin 32.9 pg (27.0-31.0); Mean Platelet Volume 8.2 fL (7.4-10.4); Platelet Count 112 10x3/uL (130-400); Red Blood Cell (RBC) Count 3.47 mill/uL (4.20-5.40); White Blood Cell (WBC) Count 7.7 10x3/uL (4.8-10.8)
[2022-09-26 14:26] LABS: Actual Bicarbonate (HCO3v) 19 mEq/L (22-28); Analyzer IN Cardio ER; Base Excess -1.8 mEq/L (-2.0 to +3.0); Calcium, Ionized (venous) 0.99 mmol/L (1.16-1.32); Chloride (VBG) 104 mmol/L (98-106); Hemoglobin (Hb) 10.2 g/dL (11.7-15.5); Potassium (VBG) 4.35 mmol/L (3.70-5.30); Sodium 136.2 mmol/L (133-146); pH (venous) 7.57 (7.32-7.43)
[2022-09-26 14:35] LABS: Acetaminophen Less than 10.0 mcg/mL (10.0-30.0); Alcohol Less than 10 mg/dL (Less than 10); Salicylate Less than 8.0 mg/dL (15.0-30.0)
[2022-09-26 14:38] LABS: INR-International Normal Ratio 1.9; Prothrombin Time 22.9 sec (12.0-14.7)
[2022-09-26 14:39] LABS: PTT 37.6 sec (22.9-36.1)
[2022-09-26 14:41] LABS: ALT (SGPT) 42 U/L (8-55); AST (SGOT) 86 U/L (5-34); Albumin 3.3 g/dL (3.5-5.0); Alkaline Phosphatase 113 U/L (40-110); Anion Gap 19 mmol/L (10-20); BUN (Urea Nitrogen) 24 mg/dL (7.0-18.7); Bilirubin, Total 5.5 mg/dL (0.2-1.2); Calc. Creatinine Clearance 0 mL/min (70-130); Carbon Dioxide 20 mmol/L (22-29); Chloride 103 mmol/L (98-107); Estimated GFR 88; Globulin 3.5 g/dL (2.4-3.5); Glucose 92 mg/dL (70-105); Lipase 10 U/L (8-78); Potassium 4.5 mmol/L (3.5-5.1); Protein, Total 6.8 g/dL (6.0-8.3); Sodium 137 mmol/L (136-145)
[2022-09-26] MEDS ORDERED: levETIRAcetam 500 MG/5 ML VIAL ONE (14:43)
[2022-09-26] MEDS ORDERED: Fentanyl CADD 100 ML IV SCH ×2 (14:45→18:45)
[2022-09-26 14:54] LABS: Actual Bicarbonate (HCO3a) 21.3 mEq/L (22-28); Analyzer IN Cardio ER; Base Excess (BEa) -2.4 mEq/L (-2.0 to +3.0); Calcium, Ionized (arterial) 1.11 mmol/L (1.12-1.30); Carboxyhemoglobin (COHb) 0.1 gm% (0.0-3.0); Hemoglobin (Hb) 11.1 g/dL (12.0-16.0); O2 Tension (PaO2), arterial 140.4 mmHg (80.0-100.0); Potassium - ABG Lab 3.81 mmol/L (3.70-5.30); pH, Arterial 7.43 (7.35-7.45)
[2022-09-26 14:55] LABS: Puncture Site LBA
[2022-09-26 15:19] LABS: Bilirubin Negative (Negative); Blood, Urine Negative (Negative); Clarity Clear (Clear); Glucose, Urine (Dipstick) Normal (Negative); Ketone, Urine 20 mg/dL (Negative); Leukocyte Negative Leu/uL (Negative); Nitrite Negative (Negative); Protein, Urine (Dipstick) 20 mg/dL (Neg-Trace); Specific Gravity, Urine 1.026 (1.002-1.036); Urobilinogen 6 mg/dL (Less than 2)
[2022-09-26 15:26] LABS: Amphetamine Detected (NotDetected); Barbiturates Screen Not Detected (NotDetected); Benzodiazepine Screen Not Detected (NotDetected); Cocaine Metabolite Screen Not Detected (NotDetected); Methadone Not Detected (NotDetected); Methamphetamine Detected (NotDetected); Opiate Screen Detected (NotDetected); Oxycodone Screen Not Detected (NotDetected); Phencyclidine (PCP) Not Detected (NotDetected); THC/Cannabinoid Screen Not Detected (NotDetected); Tricyclic Screen Not Detected (NotDetected)
[2022-09-26] MEDS ORDERED: Piperacillin/Tazobactam 3.375 GM VIAL ONE (17:17)
[2022-09-26] MEDS ORDERED: Pantoprazole 40 MG VIAL ONE (17:22)
[2022-09-26] MEDS ORDERED: PROPOFOL 0 ML ONE (17:22)
[2022-09-26] MEDS ORDERED: Propofol 1,000 MG/100 ML VIAL IV ONE (17:22)
[2022-09-26] MEDS ORDERED: Acetaminophen 650 MG Suppository PR PRN (17:29)
[2022-09-26] MEDS ORDERED: Insulin Regular 300 UNITS/3 ML VIAL SC PRN ×2 (17:29)
[2022-09-26] MEDS ORDERED: Ondansetron PF 4 MG/2 ML Vial IVP PRN (17:29)
[2022-09-26] MEDS ORDERED: NOREPINEPHRINE 8 MG/250 ML-D5W 250 ML IVPB PRN (17:29)
[2022-09-26] MEDS ORDERED: Ventilator Sedation Protocol 1 EACH FS SCH (17:30)
[2022-09-26] MEDS ORDERED: Communication Order-Pharmacy FS ONE (17:33)
[2022-09-26] MEDS ORDERED: Ventilator Sedation Protocol 1 EACH FS ONE (17:33)
[2022-09-26 18:03] LABS: Lactic Acid 3.4 mmol/L (0.5-2.2)
[2022-09-26 18:31] LABS: SARS-CoV-2 NAA Rapid Test Not Detected (NotDetected)
[2022-09-26] MEDS ORDERED: Electrolyte Replacement Protocol FS PRN (18:45)
[2022-09-26] MEDS ORDERED: DISCONTINUE PREVIOUS NARCOTIC PAIN MEDICATIONS AND BENZODIAZEPINES FS SCH (18:45)
[2022-09-26] MEDS ORDERED: Propofol BOLUS 1,000 MG/100 ML VIAL IV PRN (18:45)
[2022-09-26] MEDS ORDERED: Electrolyte Replacement Protocol 1 EACH IVPB ONE (18:45)
[2022-09-26] MEDS ORDERED: Lorazepam 2 MG/ML VIAL SLOW IVP PRN (18:45)
[2022-09-26] MEDS ORDERED: Fentanyl BOLUS 250 ML IVPB PRN (18:45)
[2022-09-26] MEDS ORDERED: Lactated Ringer's 1,000 ML IV SCH ×2 (19:00→20:00)
[2022-09-26] MEDS ORDERED: Ipratropium/Albuterol 3 ML NEB NEB PRN (19:19)
[2022-09-26 19:37] LABS: Pregnancy Test - Urine (BHCG) Negative (Negative); Pregu Control Background? CLEAR/WHITE (CLR/WHITE); Pregu Control Bar Appear? YES (CONTROL BAR)
[2022-09-26 19:38] LABS: Specific Gravity 1.025 (1.002-1.036)
[2022-09-26] MEDS ORDERED: fentaNYL PF 100 MCG/2 ML SYRINGE ONE (19:56)
[2022-09-26] MEDS: Piperacillin/Tazobactam 3.375 GM in Sodium Chloride 0.9% 100 ML IVPB SCH (22:42)
[2022-09-26] MEDS: Pantoprazole 40 MG VIAL IVP SCH (22:53)
[2022-09-26] MEDS: Ipratropium/Albuterol 3 ML NEB NEB SCH (23:46)
[2022-09-27 02:10] LABS: #Eosinphils 0.1 thou/uL (0.0-0.7); #Lymphocytes 1.1 thou/uL (1.20-3.40); #Monocytes 0.7 thou/uL (0.11-0.59); #Neutrophils 3.5 thou/uL (1.40-6.50); %Basophils 0.2 % (0.0-1.0); %Eosinophils 1.7 % (0.0-10.0); %Lymphocytes 19.6 % (21.0-51.0); %Neutrophils 65.5 % (42.0-75.0); Hemoglobin 9.9 g/dL (12.0-16.0); Mean Corpuscular HGB CONC 33.2 g/dL (32.0-36.0); Mean Corpuscular Hemoglobin 34.2 pg (27.0-31.0); Mean Platelet Volume 7.6 fL (7.4-10.4); Platelet Count 120 10x3/uL (130-400); RBC Distribution Width 16.3 % (11.5-14.5); Red Blood Cell (RBC) Count 2.91 mill/uL (4.20-5.40); White Blood Cell (WBC) Count 5.4 10x3/uL (4.8-10.8)
[2022-09-27 02:30] LABS: ALT (SGPT) 34 U/L (8-55); AST (SGOT) 64 U/L (5-34); Alkaline Phosphatase 93 U/L (40-110); Anion Gap 16 mmol/L (10-20); BUN (Urea Nitrogen) 21 mg/dL (7.0-18.7); Bilirubin, Total 4.2 mg/dL (0.2-1.2); Calc. Creatinine Clearance 120 mL/min (70-130); Calcium 8.7 mg/dL (7.8-10.44); Carbon Dioxide 21 mmol/L (22-29); Chloride 108 mmol/L (98-107); Estimated GFR 104; Globulin 3.2 g/dL (2.4-3.5); Glucose 105 mg/dL (70-105); Potassium 3.7 mmol/L (3.5-5.1); Protein, Total 6.2 g/dL (6.0-8.3); Sodium 141 mmol/L (136-145)
[2022-09-27] MEDS: Lactated Ringer's 1,000 ML IV SCH ×2 (05:02→14:24)
[2022-09-27 05:13] LABS: INR-International Normal Ratio 1.8; Prothrombin Time 21.6 sec (12.0-14.7)
[2022-09-27 05:14] LABS: PTT 36.2 sec (22.9-36.1)
[2022-09-27 05:21] LABS: ALT (SGPT) 32 U/L (8-55); AST (SGOT) 58 U/L (5-34); Albumin 2.8 g/dL (3.5-5.0); Alkaline Phosphatase 86 U/L (40-110); Anion Gap 14 mmol/L (10-20); BUN (Urea Nitrogen) 21 mg/dL (7.0-18.7); Bilirubin, Total 3.8 mg/dL (0.2-1.2); Calc. Creatinine Clearance 125 mL/min (70-130); Calcium 8.4 mg/dL (7.8-10.44); Carbon Dioxide 21 mmol/L (22-29); Chloride 108 mmol/L (98-107); Estimated GFR 109; Glucose 91 mg/dL (70-105); Magnesium 1.6 mg/dL (1.6-2.6); Potassium 3.4 mmol/L (3.5-5.1); Protein, Total 5.8 g/dL (6.0-8.3); Sodium 140 mmol/L (136-145)
[2022-09-27] MEDS: Piperacillin/Tazobactam 3.375 GM in Sodium Chloride 0.9% 100 ML IVPB SCH ×3 (05:21→21:59)
[2022-09-27 05:29] LABS: Hemoglobin 9.5 g/dL (12.0-16.0); Hypochromia SLIGHT = 6-15 cells (100X) (0-5/hpf); Lymphocytes 68 % (21-51); MDiff Complete? YES; Macrocytosis SLIGHT = 6-15 cells (100X) (0-5/hpf); Mean Corpuscular HGB CONC 33.8 g/dL (32.0-36.0); Mean Corpuscular Hemoglobin 34.4 pg (27.0-31.0); Mean Platelet Volume 8.2 fL (7.4-10.4); Neutrophil 32 % (42-75); Platelet Count 106 10x3/uL (130-400); Platelet Morphology Comment Appears Decreased; RBC Distribution Width 16.4 % (11.5-14.5); Red Blood Cell (RBC) Count 2.76 mill/uL (4.20-5.40); White Blood Cell (WBC) Count 5.6 10x3/uL (4.8-10.8)
[2022-09-27] MEDS ORDERED: Lactated Ringer's 500 ML IV SCH (06:45)
[2022-09-27] MEDS: Ipratropium/Albuterol 3 ML NEB NEB SCH ×3 (07:33→18:40)
[2022-09-27] MEDS: Propofol 1,000 MG/100 ML VIAL IV PRN ×2 (07:52→17:50)
[2022-09-27] MEDS ORDERED: Magnesium 2 GM/50 ML(in water) 2 GM in Premix Bag 1 BAG IVPB SCH (08:00)
[2022-09-27] MEDS ORDERED: Potassium Phosphate 15 MMOL in Sodium Chloride 0.9% 100 ML IVPB SCH (08:00)
[2022-09-27] MEDS ORDERED: Fentanyl CADD 100 ML ONE (10:28)
[2022-09-27] MEDS: Pantoprazole 40 MG VIAL IVP SCH ×2 (10:59→20:40)
[2022-09-27] MEDS: Albumin 25% 25 GM/100 ML BOT IVPB SCH ×2 (11:41→17:45)
[2022-09-28] MEDS: Albumin 25% 25 GM/100 ML BOT IVPB SCH ×2 (00:28→05:23)
[2022-09-28] MEDS: Lactated Ringer's 1,000 ML IV SCH ×4 (00:47→18:27)
[2022-09-28] MEDS: Ipratropium/Albuterol 3 ML NEB NEB SCH ×4 (01:13→18:29)
[2022-09-28 05:05] LABS: Eosinophils 3 % (0-10); Hemoglobin 8.7 g/dL (12.0-16.0); Lymphocytes 20 % (21-51); MDiff Complete? YES; Macrocytosis MODERATE=16-30 cells (100X) (0-5/hpf); Mean Corpuscular HGB CONC 32.7 g/dL (32.0-36.0); Mean Corpuscular Hemoglobin 33.3 pg (27.0-31.0); Mean Platelet Volume 8.2 fL (7.4-10.4); Monocytes 13 % (0-10); Neutrophil 64 % (42-75); Ovalocytes SLIGHT = 2-5 cells (100X) (0-1/hpf); Platelet Count 79 10x3/uL (130-400); Platelet Morphology Comment Appears Decreased; RBC Distribution Width 16.4 % (11.5-14.5); Red Blood Cell (RBC) Count 2.61 mill/uL (4.20-5.40); White Blood Cell (WBC) Count 5.7 10x3/uL (4.8-10.8)
[2022-09-28 05:08] LABS: ALT (SGPT) 25 U/L (8-55); AST (SGOT) 47 U/L (5-34); Albumin 3.3 g/dL (3.5-5.0); Alkaline Phosphatase 77 U/L (40-110); Anion Gap 12 mmol/L (10-20); BUN (Urea Nitrogen) 18 mg/dL (7.0-18.7); Bilirubin, Total 3.9 mg/dL (0.2-1.2); Calc. Creatinine Clearance 142 mL/min (70-130); Calcium 8.4 mg/dL (7.8-10.44); Carbon Dioxide 23 mmol/L (22-29); Chloride 109 mmol/L (98-107); Estimated GFR 114; Globulin 2.7 g/dL (2.4-3.5); Glucose 105 mg/dL (70-105); Potassium 3.4 mmol/L (3.5-5.1); Sodium 141 mmol/L (136-145)
[2022-09-28] MEDS: Piperacillin/Tazobactam 3.375 GM in Sodium Chloride 0.9% 100 ML IVPB SCH ×3 (05:23→21:02)
[2022-09-28] MEDS ORDERED: Potassium Chloride 40 MEQ in Premix Bag 1 BAG IVPB SCH (05:30)
[2022-09-28] MEDS ORDERED: Furosemide 40 MG/4 ML VIAL SLOW IVP SCH (08:30)
[2022-09-28 08:34] LABS: Potassium 3.8 mmol/L (3.5-5.1)
[2022-09-28] MEDS: Pantoprazole 40 MG VIAL IVP SCH ×2 (09:23→20:54)
[2022-09-28] MEDS: Propofol 1,000 MG/100 ML VIAL IV PRN (11:49)
[2022-09-29] MEDS: Ipratropium/Albuterol 3 ML NEB NEB SCH ×4 (00:34→18:26)
[2022-09-29] MEDS: Lactated Ringer's 1,000 ML IV SCH ×2 (04:25→14:30)
[2022-09-29 04:27] LABS: #Eosinphils 0.2 thou/uL (0.0-0.7); #Lymphocytes 1.1 thou/uL (1.20-3.40); #Monocytes 0.9 thou/uL (0.11-0.59); #Neutrophils 4.2 thou/uL (1.40-6.50); %Basophils 0.4 % (0.0-1.0); %Eosinophils 3.6 % (0.0-10.0); %Lymphocytes 16.6 % (21.0-51.0); %Monocytes 13.8 % (0.0-10.0); %Neutrophils 65.6 % (42.0-75.0); Mean Corpuscular HGB CONC 32.7 g/dL (32.0-36.0); Mean Corpuscular Hemoglobin 33.9 pg (27.0-31.0); Mean Platelet Volume 8.2 fL (7.4-10.4); Platelet Count 79 10x3/uL (130-400); RBC Distribution Width 16.1 % (11.5-14.5); Red Blood Cell (RBC) Count 2.65 mill/uL (4.20-5.40); White Blood Cell (WBC) Count 6.4 10x3/uL (4.8-10.8)
[2022-09-29 04:46] LABS: ALT (SGPT) 19 U/L (8-55); AST (SGOT) 33 U/L (5-34); Albumin 3.3 g/dL (3.5-5.0); Alkaline Phosphatase 74 U/L (40-110); Anion Gap 11 mmol/L (10-20); BUN (Urea Nitrogen) 18 mg/dL (7.0-18.7); Bilirubin, Total 4.6 mg/dL (0.2-1.2); Calc. Creatinine Clearance 132 mL/min (70-130); Calcium 8.7 mg/dL (7.8-10.44); Carbon Dioxide 25 mmol/L (22-29); Chloride 109 mmol/L (98-107); Estimated GFR 111; Globulin 2.7 g/dL (2.4-3.5); Glucose 117 mg/dL (70-105); Potassium 3.6 mmol/L (3.5-5.1); Sodium 141 mmol/L (136-145)
[2022-09-29] MEDS: Piperacillin/Tazobactam 3.375 GM in Sodium Chloride 0.9% 100 ML IVPB SCH ×3 (05:44→21:39)
[2022-09-29 07:15] LABS: Actual Bicarbonate (HCO3a) 26.3 mEq/L (22-28); Base Excess (BEa) 2.3 mEq/L (-2.0 to +3.0); CO2 Tension 38.4 mmHg (35.0-45.0); Calcium, Ionized (arterial) 1.12 mmol/L (1.12-1.30); Carboxyhemoglobin (COHb) 0.2 gm% (0.0-3.0); Hemoglobin (Hb) 10.4 g/dL (12.0-16.0); O2 Tension (PaO2), arterial 129.5 mmHg (80.0-100.0); pH, Arterial 7.45 (7.35-7.45)
[2022-09-29 07:16] LABS: Puncture Site RRA
[2022-09-29] MEDS ORDERED: Dexmedetomidine In 0.9 % NaCl 100 ML IVPB SCH (08:45)
[2022-09-29] MEDS: Pantoprazole 40 MG VIAL IVP SCH ×2 (10:42→21:40)
[2022-09-30] MEDS: Lactated Ringer's 1,000 ML IV SCH ×2 (00:25→10:29)
[2022-09-30] MEDS: Ipratropium/Albuterol 3 ML NEB NEB SCH ×2 (01:53→07:11)
[2022-09-30] MEDS: Piperacillin/Tazobactam 3.375 GM in Sodium Chloride 0.9% 100 ML IVPB SCH ×2 (05:10→14:55)
[2022-09-30 05:13] LABS: #Eosinphils 0.3 thou/uL (0.0-0.7); #Lymphocytes 0.9 thou/uL (1.20-3.40); #Monocytes 0.7 thou/uL (0.11-0.59); #Neutrophils 3.5 thou/uL (1.40-6.50); %Basophils 0.4 % (0.0-1.0); %Eosinophils 6.2 % (0.0-10.0); %Lymphocytes 16.4 % (21.0-51.0); %Monocytes 12.6 % (0.0-10.0); %Neutrophils 64.4 % (42.0-75.0); Hemoglobin 9.6 g/dL (12.0-16.0); Mean Corpuscular HGB CONC 33.1 g/dL (32.0-36.0); Mean Corpuscular Hemoglobin 34.3 pg (27.0-31.0); Mean Platelet Volume 8.3 fL (7.4-10.4); Platelet Count 60 10x3/uL (130-400); RBC Distribution Width 15.8 % (11.5-14.5); White Blood Cell (WBC) Count 5.4 10x3/uL (4.8-10.8)
[2022-09-30 05:27] LABS: ALT (SGPT) 17 U/L (8-55); AST (SGOT) 31 U/L (5-34); Albumin 3.1 g/dL (3.5-5.0); Alkaline Phosphatase 67 U/L (40-110); Anion Gap 11 mmol/L (10-20); BUN (Urea Nitrogen) 18 mg/dL (7.0-18.7); Bilirubin, Total 5.2 mg/dL (0.2-1.2); Calc. Creatinine Clearance 168 mL/min (70-130); Calcium 8.3 mg/dL (7.8-10.44); Carbon Dioxide 22 mmol/L (22-29); Chloride 111 mmol/L (98-107); Estimated GFR 118; Globulin 2.7 g/dL (2.4-3.5); Glucose 96 mg/dL (70-105); Potassium 3.7 mmol/L (3.5-5.1); Protein, Total 5.8 g/dL (6.0-8.3); Sodium 140 mmol/L (136-145)
[2022-09-30] MEDS: Pantoprazole 40 MG VIAL IVP SCH (10:28)
[2022-10-01] MEDS: Acetaminophen 325 MG TAB PO PRN ×2 (00:56→12:09)
[2022-10-01] MEDS ORDERED: Ipratropium/Albuterol 3 ML NEB EZPAP PRN (03:24)
[2022-10-01] MEDS: Ketorolac Tromethamine 30 MG/ML VIAL IVP PRN ×2 (03:29→09:15)
[2022-10-01 05:11] LABS: Hemoglobin 9.6 g/dL (12.0-16.0); Mean Corpuscular HGB CONC 33.5 g/dL (32.0-36.0); Mean Corpuscular Hemoglobin 34.7 pg (27.0-31.0); Mean Platelet Volume 8.1 fL (7.4-10.4); Platelet Count 95 10x3/uL (130-400); RBC Distribution Width 15.7 % (11.5-14.5); Red Blood Cell (RBC) Count 2.77 mill/uL (4.20-5.40); White Blood Cell (WBC) Count 8.9 10x3/uL (4.8-10.8)
[2022-10-01 05:23] LABS: ALT (SGPT) 18 U/L (8-55); AST (SGOT) 46 U/L (5-34); Albumin 3.1 g/dL (3.5-5.0); Alkaline Phosphatase 65 U/L (40-110); Anion Gap 11 mmol/L (10-20); BUN (Urea Nitrogen) 11 mg/dL (7.0-18.7); Bilirubin, Total 4.2 mg/dL (0.2-1.2); Calc. Creatinine Clearance 145 mL/min (70-130); Calcium 8.1 mg/dL (7.8-10.44); Carbon Dioxide 19 mmol/L (22-29); Chloride 107 mmol/L (98-107); Estimated GFR 114; Globulin 2.7 g/dL (2.4-3.5); Glucose 96 mg/dL (70-105); Magnesium 1.7 mg/dL (1.6-2.6); Potassium 3.2 mmol/L (3.5-5.1); Protein, Total 5.8 g/dL (6.0-8.3); Sodium 134 mmol/L (136-145)
[2022-10-01 05:48] LABS: Band 3 % (5-11); Eosinophils 2 % (0-10); Lymphocytes 21 % (21-51); MDiff Complete? YES; Monocytes 10 % (0-10); Myelocyte 1 % (0-0); Neutrophil 63 % (42-75); Platelet Morphology Comment Appears Decreased
[2022-10-01] MEDS ORDERED: Potassium Chloride 20 MEQ TAB PO SCH (08:00)
[2022-10-01] MEDS ORDERED: Magnesium 2 GM/50 ML(in water) 2 GM in Premix Bag 1 BAG IVPB SCH (08:00)
[2022-10-01] MEDS: Albuterol 200 PUFF (6.7GM INHALER) INH PRN ×2 (12:44→17:40)
[2022-10-01] MEDS: HYDROcodone/Acetaminophen 5/325 mg Tablet PO PRN ×2 (15:55→22:05)
[2022-10-01] MEDS: Benzonatate 100 MG CAP PO PRN (19:41)
[2022-10-02] MEDS: HYDROcodone/Acetaminophen 5/325 mg Tablet PO PRN ×4 (04:11→22:38)
[2022-10-02] MEDS: Benzonatate 100 MG CAP PO PRN ×3 (04:11→18:26)
[2022-10-02 04:47] LABS: #Eosinphils 0.4 thou/uL (0.0-0.7); #Lymphocytes 1.7 thou/uL (1.20-3.40); #Monocytes 1.2 thou/uL (0.11-0.59); %Basophils 0.5 % (0.0-1.0); %Eosinophils 4.9 % (0.0-10.0); %Lymphocytes 20.5 % (21.0-51.0); %Monocytes 14.1 % (0.0-10.0); %Neutrophils 59.9 % (42.0-75.0); Hemoglobin 9.4 g/dL (12.0-16.0); Mean Corpuscular HGB CONC 32.7 g/dL (32.0-36.0); Mean Corpuscular Hemoglobin 33.3 pg (27.0-31.0); Mean Platelet Volume 7.9 fL (7.4-10.4); Platelet Count 89 10x3/uL (130-400); RBC Distribution Width 16.1 % (11.5-14.5); Red Blood Cell (RBC) Count 2.83 mill/uL (4.20-5.40); White Blood Cell (WBC) Count 8.4 10x3/uL (4.8-10.8)
[2022-10-02 05:20] LABS: ALT (SGPT) 22 U/L (8-55); AST (SGOT) 56 U/L (5-34); Albumin 3.2 g/dL (3.5-5.0); Alkaline Phosphatase 74 U/L (40-110); Anion Gap 11 mmol/L (10-20); BUN (Urea Nitrogen) 11 mg/dL (7.0-18.7); Bilirubin, Total 4.1 mg/dL (0.2-1.2); Calc. Creatinine Clearance 156 mL/min (70-130); Calcium 8.5 mg/dL (7.8-10.44); Carbon Dioxide 20 mmol/L (22-29); Chloride 108 mmol/L (98-107); Estimated GFR 115; Globulin 3.2 g/dL (2.4-3.5); Glucose 106 mg/dL (70-105); Potassium 3.7 mmol/L (3.5-5.1); Protein, Total 6.4 g/dL (6.0-8.3); Sodium 135 mmol/L (136-145)
[2022-10-02] MEDS: Albuterol 200 PUFF (6.7GM INHALER) INH PRN (21:17)
[2022-10-03] MEDS: Benzonatate 100 MG CAP PO PRN ×2 (04:34→17:45)
[2022-10-03] MEDS: HYDROcodone/Acetaminophen 5/325 mg Tablet PO PRN ×5 (04:34→23:53)
[2022-10-03 06:34] LABS: ALT (SGPT) 21 U/L (8-55); AST (SGOT) 43 U/L (5-34); Albumin 3.2 g/dL (3.5-5.0); Alkaline Phosphatase 69 U/L (40-110); Anion Gap 10 mmol/L (10-20); BUN (Urea Nitrogen) 8 mg/dL (7.0-18.7); Bilirubin, Total 3.7 mg/dL (0.2-1.2); Calc. Creatinine Clearance 189 mL/min (70-130); Calcium 8.2 mg/dL (7.8-10.44); Carbon Dioxide 20 mmol/L (22-29); Chloride 108 mmol/L (98-107); Estimated GFR 119; Globulin 2.8 g/dL (2.4-3.5); Glucose 88 mg/dL (70-105); Potassium 3.8 mmol/L (3.5-5.1); Sodium 134 mmol/L (136-145)
[2022-10-03] MEDS ORDERED: Fentanyl 100 MCG/2 ML VIAL SLOW IVP SCH (07:45)
[2022-10-03] MEDS ORDERED: FENTANYL 50 MCG/ML 1 ML VIAL SLOW IVP SCH (08:15)
[2022-10-03] MEDS: levETIRAcetam 500 MG TAB PO SCH ×2 (09:33→20:18)
[2022-10-03] MEDS ORDERED: Albuterol 200 PUFF (6.7GM INHALER) INH PRN (09:58)
[2022-10-03] MEDS ORDERED: FENTANYL 50 MCG/ML 1 ML VIAL SLOW IVP PRN (12:00)
[2022-10-03 14:03] VITALS: BMI 29.7
[2022-10-03] MEDS ORDERED: Clotrimazole 2% 3 Day Vag Cr 22.2 GM TUBE VAG SCH (21:00)
[2022-10-03] MEDS: Acetaminophen 325 MG TAB PO PRN (21:43)
[2022-10-04] MEDS: HYDROcodone/Acetaminophen 5/325 mg Tablet PO PRN ×2 (05:51→11:19)
[2022-10-04 06:29] LABS: ALT (SGPT) 19 U/L (8-55); AST (SGOT) 39 U/L (5-34); Albumin 3.4 g/dL (3.5-5.0); Alkaline Phosphatase 78 U/L (40-110); Anion Gap 10 mmol/L (10-20); BUN (Urea Nitrogen) 10 mg/dL (7.0-18.7); Bilirubin, Total 3.6 mg/dL (0.2-1.2); Calc. Creatinine Clearance 173 mL/min (70-130); Calcium 8.4 mg/dL (7.8-10.44); Carbon Dioxide 20 mmol/L (22-29); Chloride 106 mmol/L (98-107); Estimated GFR 117; Glucose 114 mg/dL (70-105); Potassium 3.7 mmol/L (3.5-5.1); Protein, Total 6.4 g/dL (6.0-8.3); Sodium 132 mmol/L (136-145)
[2022-10-04] MEDS: levETIRAcetam 500 MG TAB PO SCH (08:54)
[2022-10-04 12:37] VITALS: BP 115/65; TEMP 98.8
== END 2022-10-04 14:10 | disposition home or self-care (01) | DRG 853 ==
LOC: ERS 13:44 → CCU 17:02 → SURG A 09-30 16:05
PROVIDERS: ADMIT Family Medicine; ATTEND Family Medicine
PROC: 0DB80ZZ Excision of Small Intestine, Open Approach (ICD-10-PCS; principal; 2022-09-26)
PROC: 0BQT0ZZ Repair Diaphragm, Open Approach (ICD-10-PCS; 2022-09-26)
PROC: 0BH17EZ Insertion of Endotracheal Airway into Trachea, Via Natural or Artificial Opening (ICD-10-PCS; 2022-09-26)
PROC: 5A1945Z Respiratory Ventilation, 24-96 Consecutive Hours (ICD-10-PCS; 2022-09-26)
PROC: 3E03329 Introduction of Other Anti-infective into Peripheral Vein, Percutaneous Approach (ICD-10-PCS; 2022-09-26)
PROC: 4A133R1 Monitoring of Arterial Saturation, Peripheral, Percutaneous Approach (ICD-10-PCS; 2022-09-26)
PROC: 0D9770Z Drainage of Stomach, Pylorus with Drainage Device, Via Natural or Artificial Opening (ICD-10-PCS; 2022-09-26)
PROC: 30233L1 Transfusion of Nonautologous Fresh Plasma into Peripheral Vein, Percutaneous Approach (ICD-10-PCS; 2022-09-26)
PROC: 02HV33Z Insertion of Infusion Device into Superior Vena Cava, Percutaneous Approach (ICD-10-PCS; 2022-09-26)
DX: A41.9 Sepsis, unspecified organism (principal); G93.41 Metabolic encephalopathy; J96.01 Acute respiratory failure with hypoxia; K44.1 Diaphragmatic hernia with gangrene; Z20.822 Contact with and (suspected) exposure to COVID-19; J44.9 Chronic obstructive pulmonary disease, unspecified; R65.20 Severe sepsis without septic shock; K70.30 Alcoholic cirrhosis of liver without ascites; B18.2 Chronic viral hepatitis C; D64.9 Anemia, unspecified; T40.601A Poisoning by unspecified narcotics, accidental (unintentional), initial encounter; T43.621A Poisoning by amphetamines, accidental (unintentional), initial encounter; K76.82 Hepatic encephalopathy; K26.9 Duodenal ulcer, unspecified as acute or chronic, without hemorrhage or perforation; G93.89 Other specified disorders of brain; E88.09 Other disorders of plasma-protein metabolism, not elsewhere classified; D69.6 Thrombocytopenia, unspecified; K25.9 Gastric ulcer, unspecified as acute or chronic, without hemorrhage or perforation; F10.10 Alcohol abuse, uncomplicated; F15.10 Other stimulant abuse, uncomplicated; F17.210 Nicotine dependence, cigarettes, uncomplicated; Z88.5 Allergy status to narcotic agent; Z88.0 Allergy status to penicillin; Z88.8 Allergy status to other drugs, medicaments and biological substances; Z91.018 Allergy to other foods; Z79.52 Long term (current) use of systemic steroids; Z79.899 Other long term (current) drug therapy; Z78.1 Physical restraint status; Z90.49 Acquired absence of other specified parts of digestive tract; Z79.51 Long term (current) use of inhaled steroids
CPT/HCPCS: 31500; 36415; 36416; 36430; 36600; 51702; 70450; 70551; 71045; 74177; 80053; 80306; 80307; 81003; 81025; 82140; 82805; 83605; 83690; 83735; 84100; 84145; 84484; 85025; 85610; 85730; 86850; 86900; 86901; 87040; 87086; 93005; 93306; 94002; 94003; 94640; 95712; 95816; 95819; 95957; 96361; 96365; 96366; 96368; 96375; 97139; 99292; C1751; C9113; J1650; J1885; J1940; J1953; J2060; J2310; J2543; J2704; J3010; J3475; J3480; J3490; J7120; J7611; J7620; P9047; P9059; Q9967; U0002